=== PATIENT | female | born 1995 | race African-American/Black ===

== ENCOUNTER 2020-07-15 10:57 | Outpatient (CLI) | payer MEDICAID ==
[2020-07-15 11:56] LABS: BACTERIA (WET MOUNT) 3+ BACTERIA SEEN; RBCS (WET MOUNT) 2+ RBCS SEEN; T.VAGINALIS (WET MOUNT) NO TRICHOMONAS SEEN; WBCS (WET MOUNT) 1+ WBCS SEEN; YEAST (WET MOUNT) NO YEAST SEEN
[2020-07-15 12:02] LABS: APPEARANCE,URINE SLIGHTLY-CLOUDY; BILIRUBIN,URINE NEGATIVE (NEGATIVE); COLOR,URINE YELLOW; GLUCOSE, URINE 50 mg/dL (NEGATIVE); KETONES,URINE NEGATIVE (NEGATIVE); LEUKOCYTE ESTERASE,URINE MODERATE (NEGATIVE); NITRITE,URINE NEGATIVE (NEGATIVE); PROTEIN,URINE NEGATIVE (NEGATIVE); URINE SPECIFIC GRAVITY 1.011
[2020-07-15 12:17] LABS: URINE AMPHETAMINES SCREEN NEGATIVE; URINE BARBITURATES SCREEN NEGATIVE; URINE BENZODIAZEPINES SCREEN NEGATIVE; URINE COCAINE SCREEN NEGATIVE; URINE MARIJUANA (THC) SCREEN NEGATIVE; URINE METHADONE SCREEN NEGATIVE; URINE PHENCYCLIDINE SCREEN NEGATIVE
--- NOTE | 2020-07-15 12:52 | Non Stress Test Report ---
Non Stress Test Datetime Report Generated by CPN: 07/15/2020 12:51 DEMOGRAPHIC EGA NST: 32.6 INDICATION Indication for Study (NST) Other: IUP at 32.6; Vaginal bleeding VITAL SIGNS Temperature - NST: 98.9 Pulse - NST: 90 RESP - NST: 18 NBPSYS NST: 116 NBPDIA NST: 60 MONITORING Monitor Explained: Monitor Explained; Test Explained; Patient Verbalized Understanding Time on Monitor: 07/15/2020 11:11 Time off Monitor: 07/15/2020 12:35 Time off Monitor: 07/15/2020 12:35 NST Duration: 84 NST INTERVENTIONS NST Interventions: PO Hydration Physician Notified NST: P. Headley, CNM BABY A: [id number] BABY A Movement : Present Contraction Frequency : 0 FHR Baseline : 130 Accelerations : 15X15 Decelerations : None Variability : Moderate 6-25bpm NST Review: Meets Criteria for Reactive NST NST Review and Verified By : Norma Camp RNC NST Results: Reactive NST REPORT Report Trigger: Send Report
[2020-07-15 13:26] LABS: CHLAM PCR DETECTED (NOT DETECT)
== END 2020-07-15 12:42 | disposition home health service (06) ==
LOC: LC 10:57
PROVIDERS: ATTEND Obstetrics & Gynecology Gynecology
DX: O46.93 Antepartum hemorrhage, unspecified, third trimester (principal); Z3A.32 32 weeks gestation of pregnancy
CPT/HCPCS: 59025; 80307; 81001; 87210; 87491; 87591

== ENCOUNTER 2020-09-05 20:26 | Inpatient (IN) | payer BC, MEDICAID ==
[2020-09-05 21:01] LABS: APPEARANCE,URINE SLIGHTLY-CLOUDY; BILIRUBIN,URINE NEGATIVE (NEGATIVE); COLOR,URINE STRAW; GLUCOSE, URINE NEGATIVE (NEGATIVE); KETONES,URINE NEGATIVE (NEGATIVE); LEUKOCYTE ESTERASE,URINE SMALL (NEGATIVE); NITRITE,URINE NEGATIVE (NEGATIVE); PROTEIN,URINE NEGATIVE (NEGATIVE); URINE SPECIFIC GRAVITY 1.002; UROBILINOGEN,URINE NEGATIVE mg/dL (<2.0)
[2020-09-05] MEDS ORDERED: RINGERS SOLUTION,LACTATED 1,000 ML IV ONE (21:12)
[2020-09-05 21:28] LABS: URINE AMPHETAMINES SCREEN NEGATIVE; URINE BARBITURATES SCREEN NEGATIVE; URINE BENZODIAZEPINES SCREEN NEGATIVE; URINE COCAINE SCREEN NEGATIVE; URINE MARIJUANA (THC) SCREEN NEGATIVE; URINE METHADONE SCREEN NEGATIVE; URINE PHENCYCLIDINE SCREEN NEGATIVE
[2020-09-05 21:41] LABS: ABSOLUTE EOSINOPHILS # (AUTO) 0.2 10^3/uL (0.0-0.6); ABSOLUTE MONOCYTES (AUTO) 1.3 10^3/uL (0.1-1.4); BASOPHILS % (AUTO) 0.4 % (0-2); EOSINOPHILS % (AUTO) 1.7 % (0-6); HEMATOCRIT 31.2 % (36.0-47.0); HEMOGLOBIN 9.7 g/dL (12.0-15.5); LYMPHOCYTES % (AUTO) 21.4 % (13-45); MEAN CORPUSCULAR HEMOGLOBIN 21.5 pg (27.0-33.4); MEAN CORPUSCULAR HGB CONC 31.2 g/dL (32.0-36.0); MEAN CORPUSCULAR VOLUME 69 fl (80-97); MONOCYTES % (AUTO) 13.2 % (3-13); PLATELET COUNT 272 10^3/uL (150-450); RED BLOOD COUNT 4.53 10^6/uL (3.72-5.28); RED CELL DISTRIBUTION WIDTH 18.1 % (11.5-14.0); SEGMENTED NEUTROPHILS % (AUTO) 63.3 % (42-78); TOTAL CELLS COUNTED % (AUTO) 100 %; WHITE BLOOD COUNT 9.5 10^3/uL (4.0-10.5)
[2020-09-05] MEDS: RINGERS SOLUTION,LACTATED 1,000 ML IV PRN (21:49)
[2020-09-06] MEDS ORDERED: OXYTOCIN/0.9 % SODIUM CHLORIDE 30 UNIT/500 ML RTUINJ IV PRN ×2 (03:44→15:53)
[2020-09-06] MEDS ORDERED: LIDOCAINE 1% INJ-PF (10 MG/ML) 30 ML SDV ONE (04:02)
[2020-09-06] MEDS ORDERED: OXYTOCIN 10 UNIT/ML VIAL ONE (04:02)
[2020-09-06] MEDS ORDERED: MISOPROSTOL 0.2 MG TABLET ONE (04:02)
[2020-09-06] MEDS ORDERED: OXYTOCIN/0.9 % SODIUM CHLORIDE 30 UNIT/500 ML RTUINJ ONE (04:03)
[2020-09-06] MEDS ORDERED: NALBUPHINE HCL INJ 10 MG/1 ML AMPULE INJ ONE (04:15)
[2020-09-06] MEDS ORDERED: PROMETHAZINE HCL INJ 25 MG/1 ML VIAL IV ONE (04:17)
[2020-09-06] MEDS ORDERED: PROMETHAZINE HCL INJ 25 MG/1 ML VIAL ONE (04:19)
[2020-09-06] MEDS ORDERED: NALBUPHINE HCL INJ 10 MG/1 ML AMPULE ONE (04:20)
--- NOTE | 2020-09-06 08:58 | Admission Physical ---
Datetime Report Generated by CPN: 09/06/2020 08:57 CURRENT ADMISSION Chief Complaint: Suspected Ruptured Membranes Admit Impression : Term, Intrauterine Admit Plan: Admit to Unit ALLERGIES Medication Allergies: No Medication Allergies: No Known Allergies (07/15/2020) Latex: No Latex Allergies OBSTETRICAL HISTORY EDC: 09/03/2020 00:00 : 2 Para: 0 IAB: 1 Gestational Diabetes: No Rh Sensitization: No Incompetent Cervix: No MARIA G: No Infertility: No ART Treatment: No Uterine Anomaly: No IUGR: No Hx Previous C/S: No Macrosomia: No Hx Loss/Stillborn: No PIH: No Hx : No Placenta Previa/Abruption: No Depression/PP Depression: No PTL/PROM: No Post Hemorrhage: No Obstetrical History Comments: G1- EAB 2011 G2- current SEE RECORDS Alcohol: No Marijuana : No Cocaine: No Other Illicit Drugs: No Cigarettes: Former Smoker. [id number] MEDICAL HISTORY Diabetes: No Blood Transfusion: No Pulmonary Disease (Asthma, TB): No Breast Disease: No Hypertension: No Account Installer Surgery: No Heart Disease: No Hosp/Surgery: No Autoimmune Disorder: No Anesthetic Complications: No Kidney Disease: No Abnormal Pap Smear: Yes Neuro/Epilepsy: No Psychiatric Disorders: Yes Other Medical Diseases: No Hepatitis/Liver Disease: No Significant Family History: No Varicosities/Phlebitis: No Trauma/Violence : No Thyroid Dysfunction: No Medical History Comments: Pt states she was diagnosed with a mood disorder but doesn't know what it is INFECTIOUS HISTORY Gonorrhea: Yes Genital Herpes: No Chlamydia: Yes Tuberculosis: No Syphilis: No Hepatitis: No HIV/AIDS Exposure: No Rash or Viral Illness: No HPV: Yes PHYSICAL EXAM General: Normal HEENT: Normal Neurologic: Normal Thyroid: Normal Heart: Normal Lungs: Normal Breast: Normal Back: Normal Abdomen: Normal Genitourinary Exam: Normal Extremities: Normal DTRs: Normal Pelvic Type: Adequate Vital Signs: Reviewed FETUS A EGA: 40.3 Monitoring: External US FHR- Baseline: 130 Variability: Moderate 6-25bpm Accelerations: 15X15 Decelerations: None FHR Category: Category I Admit Comment: Pt presented last night w/ SROM at 1930. Hx +GC/ Chlamydia w/ negative MICHAEL this . Pitocin infusing to augment labor, GBS negative. Pt plans epidural when in active labor. Attending MD on admission was Dr Lamb. Now Dr Rockwell on this morning. PLANS FOR LABOR AND DELIVERY Labor and Delivery: None Pain Management: Natural Feeding Preference: Both Benefit of Breast Feed Discussed: Yes Circumcision: Yes INFORMED CONSENT Assignment: Annie Rockwell MD Signature: with User ID: [email or web address] : with User ID: [email or web address]
[2020-09-06] MEDS ORDERED: EPHEDRINE SULFATE INJ 50 MG/1 ML AMPULE ONE (09:36)
[2020-09-06] MEDS ORDERED: FENTANYL/BUPIVACAINE/NS/PF 300 MCG/150 ML RTUINJ EPI ONE (09:37)
[2020-09-06] MEDS ORDERED: ROPIVACAINE HCL 0.2% INJ/PF (2 MG/ML) 20 ML SDV ONE (09:37)
[2020-09-06] MEDS: RINGERS SOLUTION,LACTATED 1,000 ML IV PRN (10:08)
--- NOTE | 2020-09-06 12:04 | L&D Progress Notes ---
PROGRESS NOTES Datetime Report Generated by CPN: 09/06/2020 12:04 PROGRESS NOTE Impression Other: Prolonged decel Plan Other: Pitocin off, O2 applied Vital Signs : Reviewed; Within Normal Limits Comment: In room d/t Prolonged deceleration down to 90-100 x 6 min.Pitocin turned off. Pt to hands and knees position, O2 applied, IVF bolus. FHR spontaneously back to 120's w/ resuscitation measures. Dr Rockwell informed. VE per RN pt is /-1. Will watch FHR tracing closely. Allow for resuscitation, then restart Pit at half as long as Cat 1 FHR tracing. LAST VAGINAL EXAM-NURSING Nursing Exam Dilitation: 7.0 Nursing Exam Effacement: 90 Nursing Exam Station: -1 FETUS A FHR - Baseline: 120 Monitoring: External US FHR Category: Category II SIGNATURE SIGNATURE: [id number];[id number];[id number] Assignment: Annie Rockwell MD Signature: with User ID: Chester : with User ID: Chester
--- NOTE | 2020-09-06 13:46 | L&D Progress Notes ---
PROGRESS NOTES Datetime Report Generated by CPN: 09/06/2020 13:46 PROGRESS NOTE Impression: Normal Progression of Labor Impression Other: Prolonged decel Procedures: Sterile Vag Exam Plan: Continue Present Management; Anticipate Vaginal Delivery Plan Other: Pitocin off, O2 applied Vital Signs : Reviewed; Within Normal Limits Comment: VE per RN pt is now 9/90/+1. Position changes encouraged. Anticipate LAST VAGINAL EXAM-NURSING Nursing Exam Dilitation: 9.0 Nursing Exam Effacement: 100 Nursing Exam Station: 1 MEMBRANES Membranes: Ruptured Amniotic Fluid Color: Clear FETUS A FHR - Baseline: 140 Monitoring: External US Variability: Moderate 6-25bpm Accelerations: 15X15 Decelerations: Early; Variable FHR Category: Category II SIGNATURE SIGNATURE: [id number];[id number];[id number] Assignment: Annie Rockwell MD Signature: with User ID: [email or web address] : with User ID: [email or web address]
[2020-09-06] MEDS ORDERED: DIPHENHYDRAMINE HCL 25 MG CAPSULE PO PRN (15:53)
[2020-09-06] MEDS ORDERED: PROMETHAZINE HCL INJ 25 MG/1 ML VIAL IV PRN (15:53)
[2020-09-06] MEDS ORDERED: DIBUCAINE 1% OINTMENT 28 GM TP PRN (15:53)
[2020-09-06] MEDS ORDERED: PROMETHAZINE HCL 25 MG TABLET PO PRN (15:53)
[2020-09-06] MEDS ORDERED: PSEUDOEPHEDRINE HCL 30 MG TABLET PO PRN (15:53)
[2020-09-06] MEDS ORDERED: MEASLES,MUMPS&RUBELLA VACC/PF 0.5 ML VIAL SUBCUT PRN (15:53)
[2020-09-06] MEDS ORDERED: PROMETHAZINE HCL 25 MG SUPP.RECT PR PRN (15:53)
[2020-09-06] MEDS ORDERED: NA PHOS,M-B/NA PHOS,DI-BA (ADULT) 133 ML ENEMA PR PRN (15:53)
[2020-09-06] MEDS ORDERED: BENZOCAINE/MENTHOL AEROSOL SPRAY 56 ML TOP PRN (15:53)
[2020-09-06] MEDS ORDERED: MAGNESIUM HYDROXIDE SUSP 30 ML UDCUP PO PRN (15:53)
[2020-09-06] MEDS ORDERED: ACETAMINOPHEN WITH CODEINE #3 TABLET PO PRN (15:53)
[2020-09-06] MEDS ORDERED: ZOLPIDEM TARTRATE 5 MG TABLET PO PRN (15:53)
[2020-09-06] MEDS ORDERED: DIPH/PERTUSS(ACELL)/TETANUS VAC/PF 0.5 ML SYR (>=10YO) IM PRN (15:53)
[2020-09-06] MEDS ORDERED: ACETAMINOPHEN 650 MG SUPP.RECT PR PRN (15:53)
[2020-09-06] MEDS ORDERED: GLYCERIN/WITCH HAZEL LEAF 1 EACH MED..WIPE TP PRN (15:53)
[2020-09-06] MEDS: FERROUS SULFATE 325 MG TABLET PO SCH (18:20)
[2020-09-06] MEDS: DOCUSATE SODIUM 100 MG CAPSULE PO SCH (18:20)
--- NOTE | 2020-09-06 18:41 | Delivery Summary ---
Del Sum A-C Datetime Report Generated by CPN: 09/06/2020 18:41 DELIVERY PERSONNEL DELIVERY PERSONNEL: [id number] Delivery Doctor:: Jael Owusu CNM Nurse Senior Teradata Developer Certified:: Jael Owusu CNM Labor and Delivery Nurse:: Nancy Chan RNstreet light repairer helper Nurse:: LAUREL Odom Nursery Nurse:: JANAE Ragsdale/ZENOBIA: Manuela Hernandez CNA II MATERNAL INFORMATION Delivery Anesthesia: Epidural Medications After Delivery: Pitocin Bolus-Please Comment; Pitocin 30 Units in 500ml NS/D5W Delivery QBL: 337 Maternal Complications: None Provider Comments: of VMI, delivered OA then rotated to KIANNA. Baby placed on pts abdoman in stable condition. Mouth bulb suctioned. Cord clamped and cut at one minute. Cord blood collected. Placenta S/C/I, IV pitocin infusing. FF w/ decreased lochia. Vaginal laceration repaired. Mother and baby in stable condition, she plans to breastfeed. Apgars 9,9. QBL pending, but less than 500 ml. Attending MD is Dr Rockwell LABOR SUMMARY EDC: 09/03/2020 00:00 No. Babies in Womb: 1 Attempted: No Labor Anesthesia: Epidural LABOR INFORMATION Reason for Induction: Not Applicable Onset of Labor: 09/06/2020 10:30 Complete Dilatation: 09/06/2020 14:52 Oxytocin: Augmentation Group B Beta Strep: negative Antibiotics # of Doses: 0 Steroids Given: None Reason Steroids Not Administered: Not Applicable MEMBRANES Membranes Rupture Method: Spontaneous Rupture of Membranes: 09/05/2020 19:30 Length of Rupture (hr): 20.10 Amniotic Fluid Color: Clear Amniotic Fluid Amount: Moderate Amniotic Fluid Odor: Normal STAGES OF LABOR Stage 1 hr: 4 Stage 1 min: 22 Stage 2 hr: 0 Stage 2 min: 44 Stage 3 hr: 0 Stage 3 min: 5 Total Time in Labor hr: 5 Total Time in Labor min: 11 VAGINAL DELIVERY Episiotomy: None Laceration #1: Vaginal Laceration Extension #1: First Degree Laceration Repair Note: Figure of 8 stitch placed in the vagina to approximate 1st degree laceration, pt tolerated well. 3.0 vicryl used. Sponge Count Correct: N/A Sharps Count Correct: N/A CSECTION DELIVERY Primary Indication: N/A CSection Incidence: N/A Labor: N/A Elective: N/A CSection Incision: N/A BABY A INFORMATION Delivery Date/Time: 09/06/2020 15:36 Method of Delivery: Nurse Controlled Delivery: No Born in Route : No : N/A Forceps: N/A Vacuum Extraction: N/A Shoulder Dystocia : No PRESENTATION/POSITION BABY A Presentation: Cephalic Cephalic Presentation: Vertex Vertex Position: Right Occipital Anterior Breech Presentation: N/A PLACENTA INFORMATION BABY A Placenta Delivery Time : 09/06/2020 15:41 Placenta Method of Delivery: Spontaneous Placenta Status: Delivered SCORES BABY A Heart Rate 1 min: >100 bpm Resp Effort 1 min: Good Cry Reflex Irritability 1 min: Cough or Sneeze or Pulls Away Muscle Tone 1 min: Active Motion Color 1 min: Body [place], Extremities Blue Resuscitation Effort 1 min: Tactile Stimulation SCORE 1 MIN: 9 Heart Rate 5 min: >100 bpm Resp Effort 5 min: Good Cry Reflex Irritability 5 min: Cough or Sneeze or Pulls Away Muscle Tone 5 min: Active Motion Color 5 min: Body [place], Extremities Blue Resuscitation Effort 5 min: N/A SCORE 5 MIN: 9 Resuscitation Effort 10 min: N/A INFANT INFORMATION BABY A Gestational Age at Delivery: 40.3 Gestational Status: Full Term- 39- 40.6 Weeks Outcome : Liveborn Infant Condition : Stable Sex: Male IDENTIFICATION BABY A Verification Date/Time: 09/06/2020 15:46 ID Band Number: [id number] Mother's Name Verified: Yes Infant RN Verifying : Sierra ChanJANAE Additional Verifying Personnel: VELVET Diaz WEIGHT/LENGTH BABY A Infant Birthweight (gm): 3580 Weight (lb): 7 Infant Weight (oz): 14 Infant Length (in): 19.75 Infant Length (cm): 50.17 CORD INFORMATION BABY A No. Cord Vessels: 3 Nuchal Cord : N/A Cord Blood Taken: Yes-For Storage (Mom's Blood type +) Suction: Mouth; Nose ASSESSMENT BABY A Complications: Multiple Late Decels; Multiple Variable Decels Physical Findings at Delivery: Caput Succedaneum; Molding of the Head Respirations: Appears Normal Skin to Skin: Yes Hat Blocking Machine Operator/ALS Called : No Infant Care By: Bola Javier RN Transferred To: Remains with Mother BABY B INFORMATION : N/A SIGNATURES Assignment: Annie Rockwell MD Signature: with User ID: Chester : with User ID: Chester
--- NOTE | 2020-09-06 18:41 | Birth Certificate Data ---
Cert Data Datetime Report Generated by YUNG: 09/06/2020 18:41 CERTIFICATE DATA 47a. Care: Yes (07/15/2020 10:58:Nancy Chan RN) 47b. Date of First Visit: 02/24/2020 00:00 (07/15/2020 10:58:Nancy Chan RN) 47c. Date of Last Visit: 09/03/2020 00:00 (07/15/2020 10:58:Nancy Chan RN) 47d. Number of Visits: 14 (07/15/2020 10:58:Nancy Chan RN) 48a. Number of Prev Live Births: 0 (07/15/2020 10:58:Nancy Chan RN) 48b. Now Livin (07/15/2020 10:58:Nancy Chan RN) 48c. Live Births Now : 0 (07/15/2020 10:58:QS system process) 48e. Losses: 0 (07/15/2020 10:58:Nancy Chan RN) RISK FACTORS IN THIS 49a. Diabetes: No (07/15/2020 10:58:Rebeka Dickens RN) 49b. Hypertension: No (07/15/2020 10:58:Rebeka Dickens RN) 49c. Previous Births: 0 (07/15/2020 10:58:Nancy Chan RN) 49d. Stillborns: No (07/15/2020 10:58:Rebeka Dickens RN) 49d. IUGR: No (07/15/2020 10:58:Rebeka Dickens RN) 49e. Infertility Treatment: No (07/15/2020 10:58:Rebeka Dickens RN) 49f. Previous Cesareans: 0 (07/15/2020 10:58:Nancy Chan RN) Mother's Height 50b. Height Inches: 65 (09/05/2020 21:13:QS system process) Mother's Weight 51a. Pre- Weight (lbs): 157 (07/15/2020 10:58:Nancy Chan RN) 51b. Weight at Delivery (lbs): 218 (09/05/2020 21:13:QS system process) 52. Dt Last Normal Menses Began: 12/11/2019 00:00 (07/15/2020 10:58:Nancy Chan RN) Infections Present/Treated 53a. Gonorrhea: Yes (07/15/2020 10:58:Rebeka Dickens RN) Results this Hospital Visit : Negative (07/15/2020 10:58:Nancy Chan RN) 53b. Syphilis: No (07/15/2020 10:58:Rebeka Dickens RN) Results this Hospital Visit: NONREACTIVE (09/05/2020 21:29:QS system process) 53c. Chlamydia: Yes (07/15/2020 10:58:Rebeka Dickens RN) Results this Hospital Visit: Negative (07/15/2020 10:58:Nancy Chan RN) 53d. Hepatitis B: No (07/15/2020 10:58:Rebeka Dickens RN) Results this Hospital Visit: Negative (07/15/2020 10:58:Rebeka Dickens RN) 53e. Hepatitis C: Negative (07/15/2020 10:58:Rebeka Dickens RN) 53h. Mother Tested for HBsAG: Yes (07/15/2020 10:58:Rebeka Dickens RN) 53i. Date Tested: 02/24/2020 00:00 (07/15/2020 10:58:Nancy Chan RN) 53j. Test Result: Negative (07/15/2020 10:58:Rebeka Dickens RN) Obstetric Procedures 54a, b, c. Obstetric Procedures: Ultrasound (07/15/2020 10:58:Nancy Chan RN) Cigarette Smoking Cigarette Smoking: Former Smoker. [id number] (07/15/2020 10:58:Rebeka Dickens RN) 55a. 3 Months Before Preg - Ci (07/15/2020 10:58:Rebeka Dickens RN) 55b. 1st Trimester of Preg- Ci (07/15/2020 10:58:Rebeka Dickens RN) 55b. Packs: 0 (07/15/2020 10:58:Nancy Chan RN) 55c. 2nd Trimester of Preg- Ci (07/15/2020 10:58:Rebeka Dickens RN) 55c. Packs: 0 (07/15/2020 10:58:Nancy Chan RN) 55d. 3rd Trimester of Preg- Ci (07/15/2020 10:58:Rebeka Dickens RN) 55d. Packs: 0 (07/15/2020 10:58:Nancy Chan RN) Onset of Labor 56a. PROM >12 Hrs: 20.10 (09/05/2020 20:51:QS system process) 56b. Precipitous Labor <3 Hrs: 5 (07/15/2020 10:58:QS system process) 56c. Prolonged Labor > 20 Hrs: 5 (07/15/2020 10:58:QS system process) 57a. Induction of Labor: Augmentation (07/15/2020 10:58:Nancy Chan RN) 57c. Non-Vertex Presentation A: Vertex (07/15/2020 10:58:Nancy Chan RN) 57d. Steroids - Lung Mat: None (07/15/2020 10:58:Nancy Chan RN) 57d. Steroids - Lung Mat: Not Applicable (07/15/2020 10:58:Nancy Chan RN) 57g. Moderate/Heavy Meconium: Clear (09/05/2020 20:51:Rebeka Dickens RN) 57h. Intolerance of Labor: N/A (07/15/2020 10:58:Nancy Chan RN) 57i. Epidural/Spinal Anesthesia: Epidural (07/15/2020 10:58:Nancy Chan RN) Method of Delivery 58a. Forceps - Unsuccessful A: N/A (07/15/2020 10:58:Nancy Chan RN) 58b. Vacuum - Unsuccessful A: N/A (07/15/2020 10:58:Nancy Chan RN) 58c. Presentation at 58c. Presentation at - A : Vertex (07/15/2020 10:58:Nancy Chan RN) 58c. Presentation at - A : N/A (07/15/2020 10:58:Nancy Chan RN) 58c. Presentation at - A : Cephalic (09/06/2020 09:24:Nancy Chan RN) Final Route and Method of Del 58d. Baby A Route/Delivery: (07/15/2020 10:58:Nancy Chan RN) 58e. Trial of Labor Attempted: No (07/15/2020 10:58:Nancy Chan RN) 58e. Trial of Labor Attempted A: N/A (07/15/2020 10:58:Nancy Chan RN) 58e. Trial of Labor Attempted B: N/A (07/15/2020 10:58:Nancy Chan RN) Maternal Morbidity 59b. 3rd or 4th Degree Lacs: Vaginal (07/15/2020 10:58:Jael Owusu CNM) Birthweight Baby A: 3580 (07/15/2020 10:58:Lucia Elliott RN) 60a. Pounds : 7 (07/15/2020 10:58:QS system process) 60b. Ounces: 14 (07/15/2020 10:58:QS system process) 61. GA at Delivery Baby A: 40.3 (07/15/2020 10:58:Nancy Chan RN) : Full Term- 39- 40.6 Weeks (07/15/2020 10:58:QS system process) 62a. 5 Minute Baby A: 9 (07/15/2020 10:58:QS system process)
[2020-09-06] MEDS: IBUPROFEN 800 MG TABLET PO SCH (21:05)
[2020-09-06] MEDS: FAMOTIDINE 20 MG TABLET PO SCH (21:06)
[2020-09-07] MEDS: IBUPROFEN 800 MG TABLET PO SCH ×3 (05:09→21:08)
[2020-09-07 08:23] VITALS: BP 123/78
[2020-09-07 08:49] LABS: HEMATOCRIT 28.8 % (36.0-47.0); HEMOGLOBIN 9.1 g/dL (12.0-15.5); MEAN CORPUSCULAR HEMOGLOBIN 21.6 pg (27.0-33.4); MEAN CORPUSCULAR HGB CONC 31.5 g/dL (32.0-36.0); MEAN CORPUSCULAR VOLUME 69 fl (80-97); PLATELET COUNT 249 10^3/uL (150-450); RED BLOOD COUNT 4.19 10^6/uL (3.72-5.28); RED CELL DISTRIBUTION WIDTH 17.8 % (11.5-14.0)
[2020-09-07 08:51] LABS: WHITE BLOOD COUNT 19.7 10^3/uL (4.0-10.5)
[2020-09-07] MEDS: FERROUS SULFATE 325 MG TABLET PO SCH ×2 (10:24→17:15)
[2020-09-07] MEDS: SENNOSIDES/DOCUSATE 8.6-50 MG 1 EACH TABLET PO SCH (10:24)
[2020-09-07] MEDS: DOCUSATE SODIUM 100 MG CAPSULE PO SCH ×2 (10:24→17:15)
[2020-09-07] MEDS: PRENATAL VITAMIN W DHA CAPSULE PO SCH (10:24)
[2020-09-07] MEDS: FAMOTIDINE 20 MG TABLET PO SCH ×2 (10:24→21:08)
--- NOTE | 2020-09-07 14:20 | PDOC PROGRESS REPORT ---
Subjective-OB Progress Note for:: 09/07/20 Subjective: reports bleeding slowing, pain controlled with current meds. denies needs Physical Exam (OB) Vital Signs: Temp Pulse Resp BP Pulse Ox 98.0 F 88 16 123/78 99 09/07/20 10:00 09/07/20 07:50 09/07/20 07:50 09/07/20 07:50 09/07/20 07:50 Intake & Output 09/06/20 09/07/20 09/08/20 06:59 06:59 06:59 Intake Total 3050 400 Output Total 550 Balance 2500 400 Weight 99 kg - Maternal Morbidity 59. Maternal Morbidity (serious complications experinced by the mother associated with labor and delivery: None of the above - Abdomen Description: Soft, Round Hernia Present: No Fundal Description: Firm, Midline Fundal Height: u/u - u/2 - Abdominal Distension: No distension Tenderness: Nontender - Extremities Lower extremities: Luther's sign - neg Calf: Normal, Nontender Objective-Diagnostic Laboratory: 09/07/20 08:20 09/07/20 08:20 WBC 19.7 H D RBC 4.19 Hgb 9.1 L Hct 28.8 L MCV 69 L MCH 21.6 L MCHC 31.5 L RDW 17.8 H Plt Count 249 Assessment and Plan(PN) - Time Spent with Patient Time with patient: Less than 15 minutes - Disposition Anticipated Discharge Disposition: Home, Self Care Anticipated Discharge Timeframe: within 24 hours
[2020-09-08] MEDS: IBUPROFEN 800 MG TABLET PO SCH (05:07)
--- NOTE | 2020-09-08 10:01 | PDOC DISCHARGE SUMMARY ---
Impression - Admit/DC Date/PCP Admission Date/Primary Care Provider: 09/05/20 21:23 DANIEL ROBIN MD Discharge Date: 09/08/20 - PP day #2, doing well, UOB, voiding, A+, Rubella Immune, breast and bottle feeding, - Discharge Diagnosis (1) 40 weeks gestation of Is this a current diagnosis for this admission?: Yes (2) (normal spontaneous vaginal delivery) Is this a current diagnosis for this admission?: Yes - Additional Information Resuscitation Status: Full Code Discharge Diet: As Tolerated, Regular Discharge Activity: Activity As Tolerated, No Lifting Over 10 Pounds, Pelvic Rest Referrals: DANIEL ROBIN MD [Primary Care Provider] - Prescriptions: Ferrous Sulfate [Feosol 325 mg Tablet] 325 mg PO DAILY #30 tablet Ibuprofen [Motrin 800 mg Tablet] 800 mg PO Q8 #60 tablet Home Medications: Pnv No.103/Folic/Om3s/Fish Oil [ Gummies] 1 each PO DAILY 07/15/20 Ferrous Sulfate [Feosol 325 mg Tablet] 325 mg PO DAILY #30 tablet 09/08/20 Ibuprofen [Motrin 800 mg Tablet] 800 mg PO Q8 #60 tablet 09/08/20 HPI Reason(s) for Admission: Induction of Labor Intrapartum Procedure(s): Spontaneous Vaginal Delivery Complication(s): Laceration-Vaginal Laceration-Degree: 1st Hospital Course 59. Maternal Morbidity (serious complications experinced by the mother associated with labor and delivery: None of the above Results Laboratory Results: WBC 19.7 10^3/uL (4.0-10.5) H D 09/07/20 08:20 RBC 4.19 10^6/uL (3.72-5.28) 09/07/20 08:20 Hgb 9.1 g/dL (12.0-15.5) L 09/07/20 08:20 Hct 28.8 % (36.0-47.0) L 09/07/20 08:20 MCV 69 fl (80-97) L 09/07/20 08:20 MCH 21.6 pg (27.0-33.4) L 09/07/20 08:20 MCHC 31.5 g/dL (32.0-36.0) L 09/07/20 08:20 RDW 17.8 % (11.5-14.0) H 09/07/20 08:20 Plt Count 249 10^3/uL (150-450) 09/07/20 08:20 Lymph % (Auto) 21.4 % (13-45) 09/05/20 21:29 Bailey % (Auto) 13.2 % (3-13) H 09/05/20 21:29 Eos % (Auto) 1.7 % (0-6) 09/05/20 21: Baso % (Auto) 0.4 % (0-2) 09/05/20 21: Absolute Neuts (auto) 6.0 10^3/uL (1.7-8.2) 09/05/20: Absolute Lymphs (auto) 2.0 10^3/uL (0.5-4.7) 09/05/20 21: Absolute Monos (auto) 1.3 10^3/uL (0.1-1.4) 09/05/20 21: Absolute Eos (auto) 0.2 10^3/uL (0.0-0.6) 09/05/20 21: Absolute Basos (auto) 0.0 10^3/uL (0.0-0.2) 09/05/20 21: Seg Neutrophils % 63.3 % (42-78) 09/05/20 21:29 Urine Color STRAW 09/05/20 20:35 Urine Appearance SLIGHTLY-CLOUDY 09/05/20 20:35 Urine pH 7.0 (5.0-9.0) 09/05/20 20:35 Ur Specific [place] 1.002 09/05/20 20:35 Urine Protein NEGATIVE mg/dL (NEGATIVE) 09/05/20 20:35 Urine Glucose (UA) NEGATIVE mg/dL (NEGATIVE) 09/05/20 20:35 Urine Ketones NEGATIVE mg/dL (NEGATIVE) 09/05/20 20:35 Urine Blood NEGATIVE (NEGATIVE) 09/05/20 20:35 Urine Nitrite NEGATIVE (NEGATIVE) 09/05/20 20:35 Urine Bilirubin NEGATIVE (NEGATIVE) 09/05/20 20:35 Urine Urobilinogen NEGATIVE mg/dL (<2.0) 09/05/20 20:35 Ur Leukocyte Esterase SMALL (NEGATIVE) H 10/11/20 20:35 Urine Ascorbic Acid NEGATIVE (NEGATIVE) 09/05/20 20:35 Membranes Rupture POSITIVE (NEGATIVE) H 09/05/20 20:48 Urine Opiates Screen NEGATIVE 09/05/20 20:35 Urine Methadone Screen NEGATIVE 09/05/20 20:35 Ur Barbiturates Screen NEGATIVE 09/05/20 20:35 Ur Phencyclidine Scrn NEGATIVE 09/05/20 20:35 Ur Amphetamines Screen NEGATIVE 09/05/20 20:35 U Benzodiazepines Scrn NEGATIVE 09/05/20 20:35 Urine Cocaine Screen NEGATIVE 09/05/20 20:35 U Marijuana (THC) Screen NEGATIVE 09/05/20 20:35 RPR NONREACTIVE (NONREACTIVE) 09/05/20 21:29 Blood Type A POSITIVE 09/05/20 21:29 Antibody Screen NEGATIVE 09/05/20 21:29 Plan Plan of Treatment: d/c home, f/up with [facility] in 4 wks for PP check Time Spent: Less than 30 Minutes
[2020-09-08] MEDS: SENNOSIDES/DOCUSATE 8.6-50 MG 1 EACH TABLET PO SCH (11:03)
[2020-09-08] MEDS: PRENATAL VITAMIN W DHA CAPSULE PO SCH (11:03)
[2020-09-08] MEDS: FERROUS SULFATE 325 MG TABLET PO SCH (11:03)
[2020-09-08] MEDS: FAMOTIDINE 20 MG TABLET PO SCH (11:03)
[2020-09-08] MEDS: DOCUSATE SODIUM 100 MG CAPSULE PO SCH (11:04)
--- NOTE | 2020-09-14 13:46 | PDOC PROGRESS REPORT ---
Subjective Progress Note for:: 09/14/20 Subjective:: In response to query- vaginal delivery (see delivery not) Reason For Visit: Physical Exam - Physical Exam Vital Signs: Temp Pulse Resp BP Pulse Ox 98.0 F 88 16 123/78 99 09/08/20 11:53 09/08/20 11:53 09/08/20 11:53 09/07/20 07:50 09/08/20 11:53 Result Laboratory Results: 09/07/20 08:20 Assessment & Plan - Time Time Spent with patient: Less than 15 minutes
--- NOTE | 2020-09-23 09:55 | Delivery Summary ---
Del Sum A-C Datetime Report Generated by CPN: 09/23/2020 09:54 DELIVERY PERSONNEL DELIVERY PERSONNEL: [id number] Delivery Doctor:: Jael Owusu CNM Nurse Radiological Engineer Certified:: Jael Owusu CNM Labor and Delivery Nurse:: Nancy Chan RNlard bleacher Nurse:: LAUREL Odom Nursery Nurse:: JANAE Ragsdale/ZENOBIA: Manuela Hernandez CNA II MATERNAL INFORMATION Delivery Anesthesia: Epidural Medications After Delivery: Pitocin Bolus-Please Comment; Pitocin 30 Units in 500ml NS/D5W Delivery QBL: 337 Maternal Complications: None Provider Comments: of VMI, delivered OA then rotated to KIANNA. Baby placed on pts abdoman in stable condition. Mouth bulb suctioned. Cord clamped and cut at one minute. Cord blood collected. Placenta S/C/I, IV pitocin infusing. FF w/ decreased lochia. Vaginal laceration repaired. Mother and baby in stable condition, she plans to breastfeed. Apgars 9,9. QBL pending, but less than 500 ml. Attending MD is Dr Rockwell LABOR SUMMARY EDC: 09/03/2020 00:00 No. Babies in Womb: 1 Attempted: No Labor Anesthesia: Epidural LABOR INFORMATION Reason for Induction: Not Applicable Onset of Labor: 09/06/2020 10:30 Complete Dilatation: 09/06/2020 14:52 Oxytocin: Augmentation Group B Beta Strep: negative Antibiotics # of Doses: 0 Steroids Given: None Reason Steroids Not Administered: Not Applicable MEMBRANES Membranes Rupture Method: Spontaneous Rupture of Membranes: 09/05/2020 19:30 Length of Rupture (hr): 20.10 Amniotic Fluid Color: Clear Amniotic Fluid Amount: Moderate Amniotic Fluid Odor: Normal STAGES OF LABOR Stage 1 hr: 4 Stage 1 min: 22 Stage 2 hr: 0 Stage 2 min: 44 Stage 3 hr: 0 Stage 3 min: 5 Total Time in Labor hr: 5 Total Time in Labor min: 11 VAGINAL DELIVERY Episiotomy: None Laceration #1: Vaginal Laceration Extension #1: First Degree Laceration Repair Note: Figure of 8 stitch placed in the vagina to approximate 1st degree laceration, pt tolerated well. 3.0 vicryl used. Sponge Count Correct: N/A Sharps Count Correct: N/A CSECTION DELIVERY Primary Indication: N/A CSection Incidence: N/A Labor: N/A Elective: N/A CSection Incision: N/A BABY A INFORMATION Delivery Date/Time: 09/06/2020 15:36 Nurse Controlled Delivery: No Born in Route : No : N/A Forceps: N/A Vacuum Extraction: N/A Shoulder Dystocia : No PRESENTATION/POSITION BABY A Presentation: Cephalic Cephalic Presentation: Vertex Vertex Position: Right Occipital Anterior Breech Presentation: N/A PLACENTA INFORMATION BABY A Placenta Delivery Time : 09/06/2020 15:41 Placenta Method of Delivery: Spontaneous Placenta Status: Delivered SCORES BABY A Heart Rate 1 min: >100 bpm Resp Effort 1 min: Good Cry Reflex Irritability 1 min: Cough or Sneeze or Pulls Away Muscle Tone 1 min: Active Motion Color 1 min: Body [place], Extremities Blue Resuscitation Effort 1 min: Tactile Stimulation SCORE 1 MIN: 9 Heart Rate 5 min: >100 bpm Resp Effort 5 min: Good Cry Reflex Irritability 5 min: Cough or Sneeze or Pulls Away Muscle Tone 5 min: Active Motion Color 5 min: Body [place], Extremities Blue Resuscitation Effort 5 min: N/A SCORE 5 MIN: 9 Resuscitation Effort 10 min: N/A INFORMATION BABY A Gestational Age at Delivery: 40.3 Gestational Status: Full Term- 39- 40.6 Weeks Infant Outcome : Liveborn Infant Condition : Stable Infant Sex: Male IDENTIFICATION BABY A Verification Date/Time: 09/06/2020 15:46 ID Band Number: [id number] Mother's Name Verified: Yes Infant RN Verifying Infant: Sierra DelgadoParisJANAE adam Additional Verifying Personnel: VELVET Diaz WEIGHT/LENGTH BABY A Infant Birthweight (gm): 3580 Infant Weight (lb): 7 Infant Weight (oz): 14 Length (in): 19.75 Length (cm): 50.17 CORD INFORMATION BABY A No. Cord Vessels: 3 Nuchal Cord : N/A Cord Blood Taken: Yes-For Storage (Mom's Blood type +) Infant Suction: Mouth; Nose ASSESSMENT BABY A Infant Complications: Multiple Late Decels; Multiple Variable Decels Physical Findings at Delivery: Caput Succedaneum; Molding of the Head Respirations: Appears Normal Skin to Skin: Yes Manager Corporate Communications/ALS Called : No Infant Care By: Bola Concepcion RN Transferred To: Remains with Mother BABY B INFORMATION : N/A SIGNATURES Assignment: Annie Rockwell MD Signature: with User ID: Chester : with User ID: Chester
--- NOTE | 2020-09-28 09:38 | Delivery Summary ---
Del Sum A-C Datetime Report Generated by CPN: 09/28/2020 09:38 DELIVERY PERSONNEL DELIVERY PERSONNEL: [id number] Delivery Doctor:: Jael Owusu CNM Nurse Ex Chef Certified:: Jael Owusu CNM Labor and Delivery Nurse:: Nancy Chan RNsolar manufacturer's representative Nurse:: LAUREL Odom Nursery Nurse:: JANAE Ragsdale/ZENOBIA: Manuela Hernandez CNA II MATERNAL INFORMATION Delivery Anesthesia: Epidural Medications After Delivery: Pitocin Bolus-Please Comment; Pitocin 30 Units in 500ml NS/D5W Delivery QBL: 337 Maternal Complications: None Provider Comments: of VMI, delivered OA then rotated to KIANNA. Baby placed on pts abdoman in stable condition. Mouth bulb suctioned. Cord clamped and cut at one minute. Cord blood collected. Placenta S/C/I, IV pitocin infusing. FF w/ decreased lochia. Vaginal laceration repaired. Mother and baby in stable condition, she plans to breastfeed. Apgars 9,9. QBL pending, but less than 500 ml. Attending MD is Dr Rockwell LABOR SUMMARY EDC: 09/03/2020 00:00 No. Babies in Womb: 1 Attempted: No Labor Anesthesia: Epidural LABOR INFORMATION Reason for Induction: Not Applicable Onset of Labor: 09/06/2020 10:30 Complete Dilatation: 09/06/2020 14:52 Oxytocin: Augmentation Group B Beta Strep: negative Antibiotics # of Doses: 0 Steroids Given: None Reason Steroids Not Administered: Not Applicable MEMBRANES Membranes Rupture Method: Spontaneous Rupture of Membranes: 09/05/2020 19:30 Length of Rupture (hr): 20.10 Amniotic Fluid Color: Clear Amniotic Fluid Amount: Moderate Amniotic Fluid Odor: Normal STAGES OF LABOR Stage 1 hr: 4 Stage 1 min: 22 Stage 2 hr: 0 Stage 2 min: 44 Stage 3 hr: 0 Stage 3 min: 5 Total Time in Labor hr: 5 Total Time in Labor min: 11 VAGINAL DELIVERY Episiotomy: None Laceration #1: Vaginal Laceration Extension #1: First Degree Laceration Repair Note: Figure of 8 stitch placed in the vagina to approximate 1st degree laceration, pt tolerated well. 3.0 vicryl used. Sponge Count Correct: N/A Sharps Count Correct: N/A CSECTION DELIVERY Primary Indication: N/A CSection Incidence: N/A Labor: N/A Elective: N/A CSection Incision: N/A BABY A INFORMATION Delivery Date/Time: 09/06/2020 15:36 Method of Delivery: Vaginal Nurse Controlled Delivery: No Born in Route : No : N/A Forceps: N/A Vacuum Extraction: N/A Shoulder Dystocia : No PRESENTATION/POSITION BABY A Presentation: Cephalic Cephalic Presentation: Vertex Vertex Position: Right Occipital Anterior Breech Presentation: N/A PLACENTA INFORMATION BABY A Placenta Delivery Time : 09/06/2020 15:41 Placenta Method of Delivery: Spontaneous Placenta Status: Delivered SCORES BABY A Heart Rate 1 min: >100 bpm Resp Effort 1 min: Good Cry Reflex Irritability 1 min: Cough or Sneeze or Pulls Away Muscle Tone 1 min: Active Motion Color 1 min: Body [place], Extremities Blue Resuscitation Effort 1 min: Tactile Stimulation SCORE 1 MIN: 9 Heart Rate 5 min: >100 bpm Resp Effort 5 min: Good Cry Reflex Irritability 5 min: Cough or Sneeze or Pulls Away Muscle Tone 5 min: Active Motion Color 5 min: Body [place], Extremities Blue Resuscitation Effort 5 min: N/A SCORE 5 MIN: 9 Resuscitation Effort 10 min: N/A INFORMATION BABY A Gestational Age at Delivery: 40.3 Gestational Status: Full Term- 39- 40.6 Weeks Infant Outcome : Liveborn Condition : Stable Infant Sex: Male IDENTIFICATION BABY A Infant Verification Date/Time: 09/06/2020 15:46 ID Band Number: [id number] Mother's Name Verified: Yes Infant RN Verifying Infant: Sierra ChanJANAE Additional Verifying Personnel: VELVET Diaz WEIGHT/LENGTH BABY A Birthweight (gm): 3580 Weight (lb): 7 Weight (oz): 14 Length (in): 19.75 Length (cm): 50.17 CORD INFORMATION BABY A No. Cord Vessels: 3 Nuchal Cord : N/A Cord Blood Taken: Yes-For Storage (Mom's Blood type +) Infant Suction: Mouth; Nose ASSESSMENT BABY A Complications: Multiple Late Decels; Multiple Variable Decels Physical Findings at Delivery: Caput Succedaneum; Molding of the Head Respirations: Appears Normal Skin to Skin: Yes Admitting Office Escort/ALS Called : No Infant Care By: Bola Javier RN Transferred To: Remains with Mother BABY B INFORMATION : N/A SIGNATURES Assignment: Annie Rockwell MD Signature: with User ID: Chester : with User ID: [email or web address]
== END 2020-09-08 17:10 | disposition home or self-care (01) | DRG 807 ==
LOC: LC 20:26 → LR 21:23 → 2S 09-06 17:59
PROVIDERS: ADMIT Obstetrics & Gynecology; ATTEND Obstetrics & Gynecology
PROC: 10E0XZZ Delivery of Products of Conception, External Approach (ICD-10-PCS; principal; 2020-09-06)
PROC: 0HQ9XZZ Repair Perineum Skin, External Approach (ICD-10-PCS; 2020-09-06)
DX: O76 Abnormality in fetal heart rate and rhythm complicating labor and delivery (principal); O70.0 First degree perineal laceration during delivery; Z37.0 Single live birth; Z3A.40 40 weeks gestation of pregnancy; Z86.19 Personal history of other infectious and parasitic diseases; Z87.891 Personal history of nicotine dependence
CPT/HCPCS: 1967; 36415; 80307; 81005; 84112; 85025; 85027; 86592; 86850; 86900; 86901; J2300; J2550; J2590; J2795; J3010; J3490